=== PATIENT | male | born 1950 | race Caucasian/White ===

== ENCOUNTER → 2017-05-26 | Outpatient (CLI) | payer BC | END | disposition home or self-care (01) | LOC: LAB 08:00 | DX: I82.4Z1 Acute embolism and thrombosis of unspecified deep veins of right distal lower extremity (principal) | CPT/HCPCS: 81240; 83890; 85240; 85300; 85302; 85305; 85613; 86146; 86147 ==

== ENCOUNTER 2017-06-17 10:51 | Emergency (ER) | payer BC ==
[2017-06-17 11:33] LABS: ADD MAN DIFF? NO
[2017-06-17 11:34] LABS: BASOPHILS % 0.2 % (0.0-2.0); EOSINOPHILS # 0.1 10^3/ul (0.0-0.5); EOSINOPHILS % 2.1 % (0.0-7.0); HEMOGLOBIN 14.2 g/dl (14.0-18.0); LYMPHOCYTES # 1.5 10^3/ul (0.8-2.9); MEAN CORPUSCULAR HEMOGLOBIN 30.4 pg (29.0-33.0); MEAN CORPUSCULAR HGB CONC 34.6 g/dl (32.0-37.0); MEAN CORPUSCULAR VOLUME 87.8 fl (82.0-101.0); MEAN PLATELET VOLUME 10.5 fl (7.4-10.4); MONOCYTE # 0.9 10^3/ul (0.3-0.9); MONOCYTES % 16.6 % (0.0-11.0); NEUTROPHIL # 2.7 10^3/ul (1.6-7.5); NEUTROPHILS % 52.9 % (39.0-77.0); PLATELET COUNT 155 10^3/UL (140-415); RED BLOOD COUNT 4.67 10^6/ul (4.70-6.10); RED CELL DISTRIBUTION WIDTH 14.2 % (11.5-14.5)
[2017-06-17 11:34] LABS: WHITE BLOOD COUNT 5.2 10^3/ul (4.8-10.8)
[2017-06-17] MEDS: LACTATED RINGER'S 1,000 ML IV (11:38)
[2017-06-17] MEDS: LOPERAMIDE 2 MG CAP PO (11:38)
[2017-06-17 11:54] LABS: ALANINE AMINOTRANSFERASE 42 IU/L (13-69); ALBUMIN/GLOBULIN RATIO 1.08; ALKALINE PHOSPHATASE 61 IU/L (42-121); ANION GAP 14 (8-16); ASPARTATE AMINO TRANSFERASE 36 IU/L (15-46); BLOOD UREA NITROGEN 7 mg/dl (7-20); CALCIUM 8.5 mg/dl (8.4-10.2); CARBON DIOXIDE 28 mmol/L (21-31); CHLORIDE 99 mmol/L (97-110); CREATININE 0.81 mg/dl (0.61-1.24); GLUCOSE 109 mg/dl (70-220); LIPASE 73 U/L (23-300); POTASSIUM 3.3 mmol/L (3.5-5.1); SODIUM 138 mmol/L (135-144); TOTAL PROTEIN 7.7 g/dl (6.1-8.1)
[2017-06-17] MEDS: POTASSIUM CHLORIDE (SR) 20 MEQ TAB PO (12:38)
== END 2017-06-17 13:05 | disposition home or self-care (01) ==
LOC: FTE 10:51
DX: R19.7 Diarrhea, unspecified (principal); Z79.01 Long term (current) use of anticoagulants
CPT/HCPCS: 36415; 80053; 83690; 85025; 99284-25

== ENCOUNTER → 2017-11-01 | Outpatient (CLI) | payer BC | END | disposition home or self-care (01) | LOC: RAD 09:56 | DX: M54.41 Lumbago with sciatica, right side (principal) | CPT/HCPCS: 72100 ==

== ENCOUNTER 2017-11-05 14:55 | Emergency (ER) | payer BC ==
[2017-11-05] MEDS: HYDROCODONE/APAP (10/325) TAB PO (16:17)
== END 2017-11-05 17:47 | disposition home or self-care (01) ==
LOC: FTE 14:55
DX: M25.551 Pain in right hip (principal); M54.41 Lumbago with sciatica, right side; I10 Essential (primary) hypertension
CPT/HCPCS: 72100; 99283-25

== ENCOUNTER 2018-03-16 13:02 | Emergency (ER) | payer BC | END 2018-03-16 14:55 | disposition home or self-care (01) | LOC: FTE 13:02 | DX: J06.9 Acute upper respiratory infection, unspecified (principal) | CPT/HCPCS: 99283 ==

== ENCOUNTER → 2018-05-25 | Outpatient (CLI) | payer BC ==
[2018-05-25 09:41] LABS: ADD MAN DIFF? NO
[2018-05-25 09:42] LABS: BASOPHILS % 0.4 % (0.0-2.0); EOSINOPHILS # 0.1 10^3/ul (0.0-0.5); EOSINOPHILS % 1.8 % (0.0-7.0); HEMATOCRIT 39.8 % (42.0-52.0); HEMOGLOBIN 13.4 g/dl (14.0-18.0); LYMPHOCYTES # 2.2 10^3/ul (0.8-2.9); LYMPHOCYTES % 39.5 % (15.0-51.0); MEAN CORPUSCULAR HEMOGLOBIN 29.5 pg (29.0-33.0); MEAN CORPUSCULAR HGB CONC 33.7 g/dl (32.0-37.0); MEAN CORPUSCULAR VOLUME 87.5 fl (82.0-101.0); MEAN PLATELET VOLUME 10.4 fl (7.4-10.4); MONOCYTE # 0.8 10^3/ul (0.3-0.9); MONOCYTES % 14.5 % (0.0-11.0); NEUTROPHIL # 2.4 10^3/ul (1.6-7.5); NEUTROPHILS % 43.4 % (39.0-77.0); PLATELET COUNT 170 10^3/UL (140-415); RED BLOOD COUNT 4.55 10^6/ul (4.70-6.10); RED CELL DISTRIBUTION WIDTH 15.4 % (11.5-14.5)
[2018-05-25 09:42] LABS: WHITE BLOOD COUNT 5.6 10^3/ul (4.8-10.8)
[2018-05-25 09:53] LABS: ADD UMIC YES; UR ASCORBIC ACID NEGATIVE (NEGATIVE); UR BACTERIA FEW /HPF (NONE SEEN); UR BILIRUBIN (Dip) NEGATIVE (NEGATIVE); UR BLOOD (Dip) 1+ mg/dL (NEGATIVE); UR CLARITY CLEAR (CLEAR); UR COLOR YELLOW (YELLOW); UR GLUCOSE (Dip) NEGATIVE (NEGATIVE); UR KETONES (Dip) NEGATIVE (NEGATIVE); UR LEUKOCYTE ESTERASE (Dip) NEGATIVE Leu/ul (NEGATIVE); UR NITRITE (Dip) NEGATIVE (NEGATIVE); UR RBC 8 /HPF (0-5); UR SPECIFIC GRAVITY (Dip) 1.013 (1.003-1.030); UR TOTAL PROTEIN (Dip) NEGATIVE (NEGATIVE); UR UROBILINOGEN (Dip) NEGATIVE (NEGATIVE); UR WBC 0 /HPF (0-5)
[2018-05-25 10:09] LABS: ALANINE AMINOTRANSFERASE 26 IU/L (13-69); ALBUMIN 4.3 g/dl (3.3-4.9); ALBUMIN/GLOBULIN RATIO 1.04; ALKALINE PHOSPHATASE 73 IU/L (42-121); ANION GAP 7 (5-13); ASPARTATE AMINO TRANSFERASE 36 IU/L (15-46); BILIRUBIN,INDIRECT 0.9 mg/dl (0-1.1); BILIRUBIN,TOTAL 0.9 mg/dl (0.2-1.3); BLOOD UREA NITROGEN 9 mg/dl (7-20); CALCIUM 9.1 mg/dl (8.4-10.2); CARBON DIOXIDE 29 mmol/L (21-31); CHLORIDE 104 mmol/L (97-110); CHOL/HDL RATIO 3.2 RATIO; CHOLESTEROL 183 mg/dl (100-200); CREATININE 0.74 mg/dl (0.61-1.24); Estimated GFR > 60 mL/min (>60); GLUCOSE 99 mg/dl (70-220); HDL CHOLESTEROL 56 mg/dl (30-78); LDL CHOLESTEROL,CALCULATED 100 mg/dl; POTASSIUM 4.2 mmol/L (3.5-5.1); SODIUM 140 mmol/L (135-144); TOTAL PROTEIN 8.4 g/dl (6.1-8.1); TRIGLYCERIDES 135 mg/dl (0-149); URIC ACID 6.8 mg/dl (3.1-7.9)
[2018-05-25 12:52] LABS: T4 (THYROXINE) 6.1 ug/dl (5.5-11.0)
[2018-05-25 13:06] LABS: PROSTATE SPECIFIC ANTIGEN 0.8 ng/ml (0.0-4.0); THYROID STIMULATING HORMONE 0.628 MIU/L (0.465-4.680)
== END | disposition home or self-care (01) ==
LOC: LAB 09:15
DX: Z00.00 Encounter for general adult medical examination without abnormal findings (principal)
CPT/HCPCS: 80053; 80061; 81001; 84153; 84154; 84436; 84443; 84560; 85025